=== PATIENT | male | born 1955 | race Caucasian/White ===

== ENCOUNTER → 2018-07-21 | Outpatient (CLI) | payer BC ==
--- NOTE | 2018-07-21 16:07 | CONS ---
CONSULTATION REASON FOR CONSULTATION: SHEKHAR REFERRING PHYSICIAN: Dr. German HISTORY OF PRESENT ILLNESS: This is a 63-year-old male patient who was referred to me for secondary erythrocytosis. This was thought to be related to obstructive sleep apnea. The patient was referred to me. This patient was diagnosed having obstructive sleep apnea more than 25 years ago. He was using an older generation CPAP unit. Recently he had contacted his DME and his machine had been upgraded to a ResMed unit which is set at a pressure of 6 cm of water. No compliancy check has been done. No recent CPAP titration is done to assess or document adequacy of the treatment. The most recent hemoglobin based on his blood work was elevated at 19.3, and obviously the patient was being considered for nocturnal oxygen saturation contributing to his secondary erythrocytosis. He was referred to me for further evaluation. The patient tells me that he has been using his CPAP every night. He is still snoring despite being on CPAP therapy and is using a nose mask Comfort Gel blue. He also occasionally wakes up choking and gasping for air. He goes to bed around 8:00 p.m., wakes up 7:00 am in the morning and despite using CPAP, he feels drowsy and sleepy during the day. His current [place] score is at 10. I checked the compliance data and based on the 30 day compliance, the patient has been utilizing his CPAP every night and his CPAP use for more than 4 hours is more than 90%. Average CPAP use is around 8.2 hours per night. Leak factor 38 L/minute and her AHI while on treatment is at 48. Based on this, he is not adequately treated and he needs to be considered for another CPAP titration. PAST MEDICAL HISTORY: 1. Erythrocytosis likely secondary with a hemoglobin level of 19.3. 2. Obstructive sleep apnea. 3. History of bladder cancer in situ. 4. Hypertension. 5. Hyperlipidemia. 6. Hypothyroidism. 7. Obesity. 8. History of atrial fibrillation. PAST SURGICAL HISTORY: Includes bilateral hip replacement. DRUG ALLERGIES: No drug allergies are not known. OUTPATIENT MEDICATION LIST: Includes outpatient medications include aspirin 81 mg p.o. daily, Flexeril 10 mg p.o. daily, digoxin 0.25 mg p.o. daily, lisinopril hydrochlorothiazide 20/25 one tablet a day. Lopressor 100 mg p.o. b.i.d., Pravachol 80 mg p.o. daily Synthroid 125 mcg p.o. daily testosterone intramuscular injection 75 mg per mL daily. SOCIAL HISTORY: He is a nonsmoker. No history of alcohol. No history of IV drugs. FAMILY HISTORY: Negative for sleep apnea. REVIEW OF SYSTEMS: 12-point review of system was done. Positive findings are mentioned above in history of present illness. He is somnolent and sleepy and he is gaining weight. His CPAP therapy has been suboptimal. No history of any syncope. No history of chest pain. No history of angina. He has chronic exertional dyspnea. He has degenerative arthritis which has affected his ability to move and ambulate. PHYSICAL EXAMINATION: BP is 145/58, pulse 80, respirations 20, temperature is 97.2, saturation 99% on room air. Height is 5 feet 8 inches, weight is 430 and neck size 18 and 0.5 inches. General appearance obese calm comfortable head is atraumatic, normocephalic. NECK: Supple. Mallampati class IV. There is no goiter or neck masses. LUNGS: Clear to auscultation. HEART: Sounds are irregular. Positive S1, S2. No S3. No murmurs. ABDOMEN: Soft, nontender. Organs cannot be adequately palpated. No direct tenderness, rebound tenderness or guarding. EXTREMITIES: Trace edema. There is no cyanosis or clubbing. Neurologic: Alert and oriented times three. No focal neurological deficits. Psychiatric: The patient has appropriate mood and affect. IMPRESSION: 1. Obstructive sleep apnea currently on CPAP pressure of 6. The patient was given a new CPAP machine through his DME, [employer]. Never the less, the treatment has been suboptimal and the patient has ongoing severe obstructive sleep apnea. Despite being on CPAP therapy at a pressure of 6 cm of water. Compliance data was checked. His AHI while on treatment is 48. 2. Erythrocytosis, looked likely secondary and this could be related to underlying obstructive sleep apnea. Also consider the possibility of nocturnal oxygen desaturation along with his obstructive sleep apnea syndrome. 3. Hypertension. 4. Hyperlipidemia. 5. Hypothyroidism. 6. History of bladder cancer in situ. 7. Hypotestosteronism. 8. Chronic back pain. 9. Morbid obesity with a BMI of 65.2. 10.Acid reflux. 11.PVCs. 12.Paroxysmal atrial fibrillation. PLAN: Obviously the patient's treatment is suboptimal. The pressure needs to be updated. The patient needs to come into the sleep center to undergo a CPAP titration. During the titration the CPAP pressure will be updated and regulated to eliminate obstructive sleep apneas and bring his AHI less than 5. Oxygen will be added if needed to maintain saturation above 90%. Encourage weight loss. Monitor the hemoglobin which is expected to drop after successful treatment of his obstructive sleep apnea. We will continue to follow. CHRISTINE / ALEXN: [id number] /
== END ==
LOC: SLEEP 13:39
PROVIDERS: ATTEND Internal Medicine Critical Care Medicine
DX: G47.33 Obstructive sleep apnea (adult) (pediatric) (principal); D75.1 Secondary polycythemia; I10 Essential (primary) hypertension; E78.5 Hyperlipidemia, unspecified; E03.9 Hypothyroidism, unspecified; E29.1 Testicular hypofunction; G89.29 Other chronic pain; M54.9 Dorsalgia, unspecified; E66.01 Morbid (severe) obesity due to excess calories; K21.9 Gastro-esophageal reflux disease without esophagitis; I48.0 Paroxysmal atrial fibrillation; I49.3 Ventricular premature depolarization; Z68.44 Body mass index [BMI] 60.0-69.9, adult; Z79.82 Long term (current) use of aspirin; Z86.008 Personal history of in-situ neoplasm of other site; Z79.899 Other long term (current) drug therapy; Z99.89 Dependence on other enabling machines and devices
CPT/HCPCS: 99211

== ENCOUNTER → 2019-10-12 | Outpatient (CLI) | payer BC ==
--- NOTE | 2019-10-12 16:59 | P.PN ---
Progress Note - Text Progress Note Date: 10/12/19 A 64-year-old male patient is coming in for a follow-up regarding his obstructive sleep apnea. The patient was diagnosed having severe SHEKHAR. The patient is currently using his CPAP at a pressure of 15 cm of water. During his last visitation, his weight was 414 pounds. I elected that the patient has gained significant amount of weight and his weight is up to 434 pounds. He is currently utilizing CPAP at a pressure of 15 cm of water. I did lower the pressure during his last evaluation for comfort reasons. The patient was experiencing oral dryness and he was also experiencing excessive leaks on the nose mask. I was able to fix that with a lower pressure. He is using the same nose mask which is a airfit N20 me in size. Based on the compliance data, the patient utilizing CPAP machine every night and is averaging around 11 hours of CPAP use per night and his AHI is down to 1.9 and his leak is down to 14 L per minute. He has no other complaints otherwise for now. His cardiac rhythm is sinus. He has also had improvement in his secondary erythrocytosis that was related to chronic hypoxemia. His current vital signs are as follows, his blood pressure is 165/85, pulse is 86 is, respiration is 16, BMI 64, weight is 434, height is 5 feet and 9 inches, temperature is 97.4, The patient appeared well nourished and normally developed. He is morbidly obese with a BMI of 64 Vital signs as documented. Head exam is unremarkable. No scleral icterus or corneal arcus noted. Neck is without jugular venous distension, thyromegaly, or carotid bruits. Carotid upstrokes are brisk bilaterally. The patient has a Mallampati class IV Lungs are clear to auscultation and percussion. Cardiac exam reveals the PMI to be normally sized and situated. Rhythm is regular. First and second heart sounds normal. No murmurs, rubs or gallops. Abdominal exam reveals normal bowel sounds, no masses, no organomegaly and no aortic enlargement. Extremities are nonedematous and both femoral and pedal pulses are normal.Examination of the skin revealed no evidence of significant rashes, suspicious appearing nevi or other concerning lesions. Neurologically the patient is awake and alert and there is no focal neurological deficits. Assessment 1 severe obstructive sleep apnea currently on a CPAP pressure of 15 cm of water with excellent clinical response and compliance he. The drop in his CPAP pressure has helped us with the air leak and the compliancy and the tolerability. To secondary erythrocytosis, improved with CPAP therapy 3 hypertension 4 hyperlipidemia 5 hypothyroidism 6 obesity with interval weight gain in the order of 20 pounds in his current BMI is up to 64 7 paroxysmal atrial fibrillation current rhythm is sinus 8 bladder cancer in situ Plan Encourage weight loss Keep same CPAP pressure at 15 cm of water Continue using the same mask interface which is a airfit N20 Increase in temperature of the tubing up to 70F's Keep the humidity at 4 comorbidities are all inactive in stable Renew the supplies and see me back in a year's time
== END | disposition home or self-care (01) ==
LOC: SLEEP 16:21
PROVIDERS: ATTEND Internal Medicine Critical Care Medicine
DX: G47.33 Obstructive sleep apnea (adult) (pediatric) (principal); I10 Essential (primary) hypertension; E78.5 Hyperlipidemia, unspecified; E03.9 Hypothyroidism, unspecified; E66.9 Obesity, unspecified; Z68.44 Body mass index [BMI] 60.0-69.9, adult; I48.0 Paroxysmal atrial fibrillation; C67.9 Malignant neoplasm of bladder, unspecified; J93.82 Other air leak; D75.1 Secondary polycythemia; Z99.89 Dependence on other enabling machines and devices

== ENCOUNTER → 2020-12-12 | Outpatient (CLI) | payer BC ==
--- NOTE | 2020-12-12 22:55 | PN ---
PROGRESS NOTE I am seeing this patient for a followup regarding his obstructive sleep apnea. The patient is a 65-year-old male patient, morbidly obese, who has severe obstructive sleep apnea. The patient has been on CPAP at a pressure of 15 cm of water. This is his annual check. He typically goes to bed around 8:30 p.m. and wakes up at 9 a.m. in the morning. He sleeps many number of hours and he does not take any naps during the day. No snoring while on the CPAP at a pressure of 15 cm of water. He is currently using an AirFit N20 large-sized nose mask. His humidity is at 4. Temperature of the tubing is at 68. Compliancy data shows that the patient has been utilizing his machine every night on an average of 11 hour per night. CPAP use for more than 4 hours is 100%. Utilization of CPAP every night is 100%. His AHI is down to 1.9 with a leak of 17 L/minute. No major change in medication. No major change in his health in general. His weight is up to 440. BMI is 62.8. No hypersomnia or sleepiness during the day. Cardiac rhythm is sinus. He has previous history of paroxysmal atrial fibrillation. He has also chronic back pain, diabetes and hypertension. Medication includes metoprolol 100 b.i.d., lisinopril 40 once a day, pravastatin 80 daily, ibuprofen as needed, aspirin 81 mg p.o. daily, levothyroxine 125 mcg p.o. daily and Trulicity 1.25 mg every week. REVIEW OF SYSTEMS: Fourteen-point review of systems was done. Positive findings are all mentioned above in the history of present illness. PHYSICAL EXAMINATION: BP is 160/75, pulse 82, respirations 24, temperature 98.5, saturation 95% on room air. Height is 5 feet 10 inches, weight is 440. BMI is 62.8. GENERAL APPEARANCE: Obese, calm, comfortable. HEAD: Atraumatic, normocephalic. NECK: Supple. No JVD. No goiter or neck masses. Mallampati class IV. LUNGS: Clear to auscultation. HEART: Heart sounds are regular rate and rhythm. Normal S1, S2. No S3, S4. No murmurs. ABDOMEN: Obese, soft, nontender. Organs cannot be palpated. EXTREMITIES: Trace edema. There is no cyanosis or clubbing. NEUROLOGIC: Awake and alert. IMPRESSION: 1. Obstructive sleep apnea, successfully treated with a CPAP pressure of 15 cm of water. No major hypersomnia or sleepiness. [place] score is down to zero. 2. Morbid obesity with a BMI of 62.8. Current weight is around 440. 3. Chronic exertional dyspnea secondary to above. 4. Paroxysmal atrial fibrillation. Current rhythm is sinus. 5. Hypertension. 6. Hyperlipidemia. 7. Diabetes mellitus. 8. Hypothyroidism. PLAN: 1. Keep CPAP pressure of 15. 2. Renew CPAP supplies. 3. Encourage weight loss. 4. Comorbidities are all inactive and stable. 5. The patient is successfully treated. The patient continues to benefit from the treatment. See me back in a year's time in followup. [email or web address] / ALEXN: [id number] /
== END ==
LOC: SLEEP 15:33
PROVIDERS: ATTEND Internal Medicine Critical Care Medicine
DX: G47.33 Obstructive sleep apnea (adult) (pediatric) (principal); Z99.89 Dependence on other enabling machines and devices; E66.01 Morbid (severe) obesity due to excess calories; Z68.44 Body mass index [BMI] 60.0-69.9, adult; I10 Essential (primary) hypertension; E78.5 Hyperlipidemia, unspecified; E11.9 Type 2 diabetes mellitus without complications; E03.9 Hypothyroidism, unspecified; I48.0 Paroxysmal atrial fibrillation; R06.09 Other forms of dyspnea

== ENCOUNTER → 2021-11-23 | Outpatient (CLI) | payer BC ==
[2021-11-24 01:15] LABS: African American GFR (CKD) 75.4 (60.0-200.0); Albumin 4.6 g/dL (3.8-4.9); Albumin/Globulin Ratio 1.63 (1.60-3.17); Anion Gap 16.3 mmol/L (10.00-18.00); BUN/Creat Ratio 33.5 Ratio (12.00-20.00); Blood Urea Nitrogen 39.2 mg/dL (9.0-27.0); C Reactive Protein 0.3 mg/dL (0.00-0.80); Calcium 10.7 mg/dL (8.7-10.3); Globulin 2.8 g/dL (1.6-3.3); Potassium 4.9 mmol/L (3.5-5.5); Total Bilirubin 0.3 mg/dL (0.30-1.20); Total Protein 7.4 g/dL (6.2-8.2)
[2021-11-24 01:20] LABS: Basophils # (A) 0.11 X 10*3/uL (0.00-0.10); Basophils % (A) 0.9 %; Eosinophils # (A) 0.32 X 10*3/uL (0.04-0.35); Eosinophils % (A) 2.6 %; HCT 49.4 % (39.6-50.0); HGB 15.4 g/dL (13.0-17.0); Immature Grans, Automated 1.9 %; Lymphocytes # (A) 3.11 X 10*3/uL (0.90-5.00); Lymphocytes % (A) 24.9 %; MCH 29.2 pg (27.0-32.0); MCHC 31.2 g/dL (32.0-37.0); MCV 93.6 fL (80.0-97.0); Mean Platelet Volume 11.6 fL (9.5-12.2); Monocytes # (A) 1.13 X 10*3/uL (0.20-1.00); NRBC Per 100 WBC 0 /100 WBCS (0.0-0.0); Neutrophils # (A) 7.58 X 10*3/uL (1.80-7.70); Neutrophils % (A) 60.7 %; Platelet Count 316 X 10*3/uL (140-440); RBC 5.28 X 10*6/uL (4.40-5.60); RDW 13.7 % (11.5-14.5); WBC 12.49 X 10*3/uL (4.50-10.00)
[2021-11-24 01:57] LABS: Erythrocyte Sedimentation Rate 30 mm/Hr (0-20)
== END | disposition home or self-care (01) ==
LOC: LABWHC1 15:28
PROVIDERS: ATTEND Internal Medicine
DX: T78.3XXA Angioneurotic edema, initial encounter (principal)
CPT/HCPCS: 36415; 80053; 84443; 85025; 85652; 86038; 86140; 86160; 86161; 86332

== ENCOUNTER → 2021-12-14 | Outpatient (CLI) | payer BC ==
[2021-12-14 16:19] LABS: Creatinine,Urine Random 197.1 mg/dL; Protein/Creatinine Ratio,Urine 0.249
[2021-12-14 23:26] LABS: Protein, Total 7.1 g/dL (6.2-8.2)
[2021-12-17 17:50] LABS: Albumin 4.09 g/dL (3.80-4.90); Gamma Globulin 1.02 g/dL (0.70-1.50)
== END | disposition home or self-care (01) ==
LOC: LABWHC1 15:21
PROVIDERS: ATTEND Physician Assistant
DX: T78.3XXA Angioneurotic edema, initial encounter (principal)
CPT/HCPCS: 36415; 82570; 84156; 84165

== ENCOUNTER → 2022-12-26 | Outpatient (CLI) | payer BC, MEDICARE ==
--- NOTE | 2022-12-26 22:42 | CTL ---
EXAMINATION TYPE: CT Low Dose Lung DATE OF EXAM ORDERED: 12/26/2022 HISTORY: [facility] tobacco use. Lung cancer screening CT DLP: 161.[address] CTDI: 4.3 mGy Automated exposure control for dose reduction was used. SCREENING VISIT: Baseline COMPARISON: None TECHNIQUE: Low dose computed tomography scan was performed through the chest at 1 mm thick sections a nd reconstructed images in multiple planes at 1 mm and [address] DIAGNOSTIC QUALITY: Limited, but interpretable Due to large body habitus. FINDINGS: LUNG NODULES: None. LUNGS: COPD: Severity: None Fibrosis: Severity: None Lymph nodes: None Other findings: None RIGHT PLEURAL SPACE: Effusion: None Calcification: None Thickening: None Pneumothorax: None LEFT PLEURAL SPACE: Effusion: None Calcification: None Thickening: None Pneumothorax: None HEART: Heart Size: Normal Coronary Calcification: None Pericardial Effusion: None OTHER FINDINGS: Upper abdomen: Visualized liver is heterogeneously hypodense consistent with diffuse fatty infiltrati on. Bony thorax: Multilevel spurring and bridging osteophytes in the thoracic spine are present. Supraclavicular region: None Other: Ascending aorta measures up to 5.1 cm in diameter axial image 28. Small degree of bilateral gy necomastia is present. IMPRESSION: Slightly suboptimal study. No significant nodules are seen. CT LUNG RAD AND CT CHEST RECOMMENDATION: Lung-Rad 1 Negative: Continue annual screening with LDCT in 12 months. S Modifier (other clinically significant findings): S Ascending aneurysm up to 5.1 cm. Follow-up advised.
== END | disposition home or self-care (01) ==
LOC: RADCTMAIN 16:15
PROVIDERS: ATTEND Internal Medicine Hematology & Oncology
DX: Z12.2 Encounter for screening for malignant neoplasm of respiratory organs (principal); F17.210 Nicotine dependence, cigarettes, uncomplicated
CPT/HCPCS: 71271

== ENCOUNTER → 2023-09-26 | Outpatient (CLI) | payer BC ==
[2023-09-26 15:09] LABS: African American GFR (CKD) >90 (>60 ml/min/1.73 sqM); Blood Urea Nitrogen 21 mg/dL (9-20); Non-African American GFR(CKD) >90 (>60 ml/min/1.73 sqM)
--- NOTE | 2023-09-26 16:14 | CT ---
EXAMINATION TYPE: CT abdomen wo/w con DATE OF EXAM: 09/26/2023 COMPARISON: Low-dose lung screening CT December 26, 2022 HISTORY: Mass on rt adrenal gland. CT DLP: 6150.5 mGycm Automated exposure control for dose reduction was used. TECHNIQUE: Helical acquisition of images was performed from the lung bases through the top of iliac crest to include entire abdomen. CONTRAST: Performed with Oral Contrast and without and with IV Contrast, patient injected with 100ml mL of Isov ue 300. Adrenal gland protocol. FINDINGS: Exam is suboptimal due to patient's large body habitus. LUNG BASES: No significant abnormality is appreciated. LIVER/GB: Liver is diffusely low dense consistent with fatty infiltrative hepatocellular disease on n oncontrast images. PANCREAS: No significant abnormality is seen. SPLEEN: No significant abnormality is seen. ADRENALS: There is small right adrenal mass measuring near 2.7 cm x 2.3 axial image 31. Hounsfield un its average 31 on noncontrast images. There is enhancement to 52 Hounsfield units and 1 minute postco ntrast images. There is washout to 38 Hounsfield units on 15 minute delayed images. There is greater than 50% washout. 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 KIDNEYS: There are a few small simple appearing thin-walled cysts throughout both kidneys including a larger simple-appearing exophytic thin-walled cyst from the lower pole left kidney. BOWEL: No significant abnormality is seen. LYMPH NODES: No significant abnormality is seen. OSSEOUS STRUCTURES: Multilevel spurring and disc space narrowing in the thoracolumbar spine. Multile tyler vacuum disc phenomenon. There are bridging osteophytes in the thoracic spine are seen. FREE AIR: No free air is visualized. OTHER: Mild to moderate calcified plaque of the aorta extends into branch vessels IMPRESSION: Suboptimal study. Greater than 50-60% washout is consistent with benign lipid rich adenom a in the 2.7 cm right adrenal mass.
== END | disposition home or self-care (01) ==
LOC: RADCTMAIN 14:32
PROVIDERS: ATTEND Family Medicine
DX: E27.8 Other specified disorders of adrenal gland (principal)
CPT/HCPCS: 82565; 84520; 74170; 36415; Q9967